=== PATIENT | male | born 1955 | race Caucasian/White ===

== ENCOUNTER 2016-07-19 08:26 | Emergency (ER) | payer BC ==
[2016-07-19 08:35] VITALS: BMI 23.6
--- NOTE | 2016-07-19 08:44 | DIRPT ---
CLINICAL DATA: Stroke-like symptoms. Right arm weakness and pain. EXAM: CT HEAD WITHOUT CONTRAST TECHNIQUE: Contiguous axial images were obtained from the base of the skull through the vertex without intravenous contrast. COMPARISON: Head MRI 03/29/[address] 03/17/2016 FINDINGS: There is no evidence of acute large territory infarct, intracranial hemorrhage, midline shift, or extra-axial fluid collection. Ventricles and sulci are normal. 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 The visualized paranasal sinuses and mastoid air cells are clear. No skull fracture is seen. Prior bilateral cataract extraction is noted. IMPRESSION: No evidence of acute intracranial abnormality. Electronically Signed By: Dionicio Mcneill M.D. On: 07/19/2016 08:41
[2016-07-19 08:48] VITALS: TEMP 98.7
[2016-07-19 09:00] LABS: AUTOMATED BASOPHIL 0.6 % (0-2); AUTOMATED EOSINOPHIL 1.7 % (0-5); AUTOMATED LYMPH 17.8 % (17-44); AUTOMATED MONOCYTE 8.5 % (3-10); AUTOMATED NEUTROPHIL 71.4 % (45-76); MPV 8.7 fL (7.4-10.4)
--- NOTE | 2016-07-19 09:07 | EDPRACDOC ---
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 07/19/16 Allergies/Adverse Reactions: Allergies Allergy/AdvReac Type Severity Reaction Status Date / Time codeine [Codeine] Allergy Unknown/See Verified 07/19/16 08:33 Comments - History of Present Illness Exact Onset of Symptoms: Known Date Symptoms Started: 07/19/16 Time Symptoms Started: 07:00 Symptoms Started: Reports: Suddenly, With light exertion Symptoms: Reports: Other motor weakness Symptoms Description: Improved Symptom Severity: Reports: Unable to performs ADL's Weakness: Right: Arm, Face Relevant History of: Denies: O, Anemia, CVA, DM, Electrolyte disorder, GI Bleed , OK, TIA Associated signs and symptoms:: Reports: None - Other History Other History: PATIENT AWAKENED NORMAL, WAS AT WORK, APPROXIMATELY 7:00 A.M. HE HAD PAIN AND SOME NUMBNES IN HIS RIGHT ARM RIGHT SHOULDER RIGHT NECK. NO WEAKNESS. NEVER HAD SYMPTOMS LIKE THIS BEFORE THIS WAS BRAND NEW. PATIENT WAS DRIVEN HOME BY HIS BOWELS AT HOME THEY CALLED 911 AND PATIENT WAS TRANSPORTED BY EMS TO [facility]. AT THIS TIME HE FEELS MUCH BETTER. HE KEEPS ASKING WHAT HAPPENED. ED Past Medical History - History Reviewed Yes Nurses notes reviewed and agree except as marked - Patient Medical History Cardiac History: Reports: Hypertension, Hypercholesterolemia Respiratory History: Denies: Pneumonia Psychological History: Reports: Anxiety. Denies: Depression Systemic History: Reports: Diabetes - Family Medical History Reports: Hypertension (FATHER,MOTHER), Diabetes (AUNT,UNCLE), Cancer (FATHER- PROSTATE; MOTHER- SKIN), Stroke (MOTHER), Cardiac Disorders (FATHER- CABG) - Social Medical History Smoking Status: Never smoker ETOH: None Substance Abuse: None Lives With: Family Lives In: Home EDM Review of Systems - Review of Systems ROS Negative Except as Marked: Yes All systems reviewed and were negative except as marked - Physical Exam Constitutional: Alert (Awake), No apparent distress Oriented to: Time, Person, Place Last recorded Vital Signs: Last Vital Signs Temp 98.7 F 07/19/16 08:45 Pulse 76 07/19/16 08:45 Resp 18 07/19/16 08:45 BP 153/94 07/19/16 08:45 Pulse Ox 96 07/19/16 08:45 Oxygen Pulse Oxygen Saturation 96 O2 Device Room Air Oxygen Flow Rate Fraction of Inspired Oxygen ( FIO2) - HEENT Head: Normal ( normocephalic) Eye Exam: Normal (PERRL, EOMI, Sclera white) Oropharynx: Normal (Pharynx:Moist without exudate,Gums-no swelling) Tympanic Membrane: Normal ENT EAC: Normal TMJ: Normal Nose: No Symptoms Reported (septum midline) Neck: Normal (FROM, trachea at midline) - Respiratory/Cardiovascular Respiratory: Normal - CTA (BBS clear to auscultation without adventitious sounds ) Cardiovascular: Normal (RRR without murmur, gallop or rub) - GI Auscultation: Normal (NABS) Palpation: Normal (Soft,No rebound or guarding, non distended) Tenderness: Non tender Laboy's Sign: Negative - Musculoskeletal Back: Normal (Non-Tender) Extremities: Normal (Normal tone, Pulses 2+ No cyanosis or edema, FROM) - Integumentary Skin: Normal, Warm, Dry Lymphatics: Normal (no adenopathy) - Neurologic Memory Impaired: Normal Motor Function: Normal (Normal tone, Pulses 2+ No cyanosis or edema, FROM) Cranial Nerve: Normal (CN II-X11 intact sensation, strength 5/5) Cerebellar: Normal Mood Description: Normal Perception: Normal NIH Stroke Scale Re-evaluation 1 Level of Consciousness: Alert LOC- Question: Answers Both Correctly LOC Commands: Both Task Correctly Visual: No Visual Loss Facial Palsy: Normal Movement Motor Arm LEFT: No Drift Motor Arm RIGHT: No Drift Motor Leg LEFT: No Drift Motor Leg RIGHT: No Drift Limb Ataxia: Absent Sensory: Normal Best Language: No Aphasia Dysarthria: Normal Extinction and Inattention: No Abnormality (Neglect) - Comment FAMILY STATES PATIENT IS NORMAL - Action Has patient received an Antithrombotic in the last 24hrs?: Yes Was an Antithrombotic given in the ED?: No - Re-evaluation Re-evaluation 3 Re-evaluation Time: 11:22 (NIHSS = 0, BP NL SAFE FOR DISCHARGE) - Results 07/19/16 08:45 07/19/16 08:45 WBC 7.2 xk/uL (3.8-10.8) 07/19/16 08:45 RBC 4.93 xM/uL (4.70-6.10) 07/19/16 08:45 Hgb 15.8 g/dL (14.0-18.0) 07/19/16 08:45 Hct 45.8 % (42-52) 07/19/16 08:45 MCV 93 fL (80-94) 07/19/16 08:45 MCH 32.0 pg (27-32) 07/19/16 08:45 MCHC 34.4 g/dl (33-36) 07/19/16 08:45 RDW 13.3 % (11.5-14.5) 07/19/16 08:45 Plt Count 224 xk/uL (130-400) 07/19/16 08:45 MPV 8.7 fL (7.4-10.4) 07/19/16 08:45 Neut % (Auto) 71.4 % (45-76) 07/19/16 08:45 Lymph % (Auto) 17.8 % (17-44) 07/19/16 08:45 [place] % (Auto) 8.5 % (3-10) 07/19/16 08:45 Eos % (Auto) 1.7 % (0-5) 07/19/16 08:45 Baso % (Auto) 0.6 % (0-2) 07/19/16 08:45 Absolute Neuts (auto) 5.11 xk/uL (1.7-8.2) 07/19/16 08:45 Absolute Lymphs (auto) 1.22 xk/uL (0.65-4.75) 07/19/16 08:45 Lab Results 07/19/16 08:45 WBC 7.2 RBC 4.93 Hgb 15.8 Hct 45.8 MCV 93 MCH 32.0 MCHC 34.4 RDW 13.3 Plt Count 224 MPV 8.7 Neut % (Auto) 71.4 Lymph % (Auto) 17.8 [place] % (Auto) 8.5 Eos % (Auto) 1.7 Baso % (Auto) 0.6 Absolute Neuts (auto) 5.11 Absolute Lymphs (auto) 1.22 - EKG EKG #1 EKG Time: 08:45 -: Yes EKG interpreted by me Rate: bpm: 65 [place]: Normal Rhythm: NSR Block: None Hypertrophy: None ST: Normal - Diagnostic Imaging Abdomen Image interpreted by: Radiologist Patient Name: NICOL KWAN Courtesy Copy to: Diagnostic Imaging Report [facility] [address] [facility] [address] [phone] Diagnostic Imaging Services Courtesy Copy to: Diagnostic Imaging Report Patient Name: NICOL KWAN LOC: ED : 1955 AGE: 60 Order Date:07/19/16 Date of Service:09/30 Report # [id number] Ord Physician: Merline Michael MD Exam # [id number] Emergency Physician: Merline Michael MD Exam(s): [id number] CT/CT ANGIO [id number] CLINICAL DATA: Chest pain and back pain. Right arm weakness. Possible aortic dissection. EXAM: CT ANGIOGRAPHY CHEST, ABDOMEN AND PELVIS TECHNIQUE: Multidetector CT imaging through the chest, abdomen and pelvis was performed using the standard protocol during bolus administration of intravenous contrast. Multiplanar reconstructed images and MIPs were obtained and reviewed to evaluate the vascular anatomy. CONTRAST: 100 mL Isovue 370 COMPARISON: CT abdomen and pelvis 12/13/2013 FINDINGS: CTA CHEST FINDINGS Precontrast CT images through the chest are without evidence of thoracic aortic intramural hematoma. The thoracic aorta is normal in caliber without evidence of dissection. The great vessels are patent without evidence of central pulmonary embolus. Incidental note is made of a common origin of the brachiocephalic and left common carotid arteries, a normal variant. LAD coronary artery calcification and mild distal thoracic aortic calcification are noted. No pleural or pericardial effusion is seen. No enlarged axillary, mediastinal, or hilar lymph nodes are identified. Mild respiratory motion artifact and dependent subsegmental atelectasis are noted. Major airways are patent. No acute osseous abnormality is seen. Review of the MIP images confirms the above findings. CTA ABDOMEN AND PELVIS FINDINGS The abdominal aorta is normal in caliber without evidence of dissection. Moderate aortoiliac atherosclerotic calcification is noted. The celiac, superior mesenteric, inferior mesenteric, and renal arteries are patent. An accessory left renal artery supplies the lower pole of the kidney. A tiny accessory renal artery is also noted on the right. Focal, predominantly noncalcified plaque in the right external iliac artery results in 70% stenosis, significantly increased from the prior CT. The liver, gallbladder, adrenal glands, and pancreas are unremarkable. There is no hydronephrosis. The 1.3 cm left lower pole renal lesion described on the prior study does not appear significantly changed in size although is not as well evaluated on the current examination due to arterial phase contrast timing. Subcentimeter low-density right renal lesions are also much more conspicuous on the prior study. There is no evidence of bowel obstruction or inflammation. The appendix is unremarkable. The bladder is unremarkable. No free fluid or enlarged lymph nodes are identified. Lower lumbar facet arthrosis is noted with trace anterolisthesis again seen of L4 on L5. Review of the MIP images confirms the above findings. IMPRESSION: 1. No evidence of aortic dissection. 2. 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 3. Grossly unchanged size of left lower pole renal lesion. Electronically Signed By: Dionicio Mcneill M.D. On: 07/19/2016 10:40 Electronically Signed By: Conor Mcneill MD Electronically Signed Date/Time: 042 Dictate Date/Time: 07/19/16 1019 Technologist: [place] Transcribed By: Hany Transcribed Date/Time: 07/19/16 1040 - Additional Information ABCDD SCORE OF 4 (MED RISK). SYMPTOMS RESOLVED, BP NL. D/W PCP, WILL EVAL FOR TIA OUTPATIENT. - Departure Disposition: Home Condition: Stable Final Diagnosis: Right upper limb pain TIA (transient ischemic attack) Qualifiers: Transient cerebral ischemia type: unspecified Qualified Code(s): G45.9 - Transient cerebral ischemic attack, unspecified Instructions: Transient Ischemic Attack (ED) Education/Counseling Given To: Patient Education/Counseling Given Regarding: Diagnosis, Treatment, Prognosis Referrals: Masood Castano MD [Primary Care Provider] - One Week Prescriptions: Aspirin [Aspirin EC] 325 mg PO DAILY #30 tablet. Additional Instructions: RETURN TO THE EMERGENCY DEPARTMENT FOR SEVERE HEADACHE, ANY NUMBNESS WEAKNESS TROUBLE TALKING ANY QUESTIONS WHATSOEVER - Physician Consulted Primary Care Provider Time Called: 11:17 Provider Called: Masood Castano Time Senior Production Supervisor Returned Call: 11:17 (WILL SEE IN CLINIC FOR RAPID TIA WORKUP)
[2016-07-19 09:12] LABS: PARTIAL THROMB. TIME 24.1 SEC (22-35); PT-INR 1.1
[2016-07-19 09:29] LABS: BLOOD UREA NITROGEN 18 MG/DL (9-20); CALCIUM 8.8 MG/DL (8.4-10.2); CALCULATED OSMOLALITY 273 MOs/Kg (270-290); CHLORIDE 105 mEq/L (98-107); GLUCOSE 100 MG/DL (70-99); SODIUM LEVEL 141 mEq/L (137-146); TOTAL PROTEIN 6.6 G/DL (6.3-8.2)
[2016-07-19] MEDS ORDERED: Pharmacy Review for Metformin - IV Contrast Given SCH (10:00)
--- NOTE | 2016-07-19 10:42 | DIRPT ---
CLINICAL DATA: Chest pain and back pain. Right arm weakness. Possible aortic dissection. EXAM: CT ANGIOGRAPHY CHEST, ABDOMEN AND PELVIS TECHNIQUE: Multidetector CT imaging through the chest, abdomen and pelvis was performed using the standard protocol during bolus administration of intravenous contrast. Multiplanar reconstructed images and MIPs were obtained and reviewed to evaluate the vascular anatomy. CONTRAST: 100 mL Isovue 370 COMPARISON: CT abdomen and pelvis 12/13/2013 FINDINGS: CTA CHEST FINDINGS Precontrast CT images through the chest are without evidence of thoracic aortic intramural hematoma. The thoracic aorta is normal in caliber without evidence of dissection. The great vessels are patent without evidence of central pulmonary embolus. Incidental note is made of a common origin of the brachiocephalic and left common carotid arteries, a normal variant. LAD coronary artery calcification and mild distal thoracic aortic calcification are noted. No pleural or pericardial effusion is seen. No enlarged axillary, mediastinal, or hilar lymph nodes are identified. Mild respiratory motion artifact and dependent subsegmental atelectasis are noted. Major airways are patent. No acute osseous abnormality is seen. Review of the MIP images confirms the above findings. CTA ABDOMEN AND PELVIS FINDINGS The abdominal aorta is normal in caliber without evidence of dissection. Moderate aortoiliac atherosclerotic calcification is noted. The celiac, superior mesenteric, inferior mesenteric, and renal arteries are patent. An accessory left renal artery supplies the lower pole of the kidney. A tiny accessory renal artery is also noted on the right. Focal, predominantly noncalcified plaque in the right external iliac artery results in 70% stenosis, significantly increased from the prior CT. The liver, gallbladder, adrenal glands, and pancreas are unremarkable. There is no hydronephrosis. The 1.3 cm left lower pole renal lesion described on the prior study does not appear significantly changed in size although is not as well evaluated on the current examination due to arterial phase contrast timing. Subcentimeter low-density right renal lesions are also much more conspicuous on the prior study. There is no evidence of bowel obstruction or inflammation. The appendix is unremarkable. The bladder is unremarkable. No free fluid or enlarged lymph nodes are identified. Lower lumbar facet arthrosis is noted with trace anterolisthesis again seen of L4 on L5. Review of the MIP images confirms the above findings. IMPRESSION: 1. No evidence of aortic dissection. 2. 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 3. Grossly unchanged size of left lower pole renal lesion. Electronically Signed By: Dionicio Mcneill M.D. On: 07/19/2016 10:40
[2016-07-19 11:36] VITALS: BP 126/82; PULSE 68
== END 2016-07-19 11:33 | disposition home or self-care (01) ==
LOC: ED 08:26
DX: G45.9 Transient cerebral ischemic attack, unspecified (principal); M79.621 Pain in right upper arm
CPT/HCPCS: 36415; 70450; 71275; 74174; 80053; 83880; 84484; 85025; 85610; 85730; 93005; 99285; A9698